=== PATIENT | male | born 1980 | race Two or more races ===

== ENCOUNTER 2024-05-04 01:29 | Emergency (ER) | payer OTHER ==
[~2024-05-04] VITALS: Ht 185.4 cm; Wt 86.2 kg
[2024-05-04] MEDS ORDERED: MORPHINE SULFATE INJ 2 MG/ML DISP.SYRIN ONE (02:10)
[2024-05-04] MEDS ORDERED: ONDANSETRON 4 MG TAB.RAPDIS ONE (02:11)
[2024-05-04] MEDS: ONDANSETRON 4 MG TAB.RAPDIS PO ONE (02:15)
[2024-05-04] MEDS: MORPHINE SULFATE INJ 2 MG/ML DISP.SYRIN IM ONE (02:15)
[2024-05-04 05:53] VITALS: BP 138/95; TEMP 98; O2SAT 100
== END 2024-05-04 05:54 | disposition home or self-care (01) ==
LOC: ER 01:31
DX: M48.56XA Collapsed vertebra, not elsewhere classified, lumbar region, initial encounter for fracture (principal); M54.2 Cervicalgia; Z60.2 Problems related to living alone; W22.09XA Striking against other stationary object, initial encounter; Y93.89 Activity, other specified; Y92.488 Other paved roadways as the place of occurrence of the external cause; Y99.8 Other external cause status
CPT/HCPCS: 99285; 72125; 96372; 72131; 72128; Q0162; J2270